=== PATIENT | female | born 1995 | race Caucasian/White ===

== ENCOUNTER 2018-03-17 20:21 | Outpatient (CLI) | payer BC ==
[2018-03-17 21:53] LABS: ADD MAN DIFF? NO
[2018-03-17 21:55] LABS: BASOPHILS % 0.1 % (0.0-2.0); EOSINOPHILS # 0.1 10^3/ul (0.0-0.5); EOSINOPHILS % 0.6 % (0.0-7.0); HEMOGLOBIN 10.7 g/dl (12.0-16.0); LYMPHOCYTES # 2.2 10^3/ul (0.8-2.9); LYMPHOCYTES % 27.7 % (15.0-51.0); MEAN CORPUSCULAR HEMOGLOBIN 25.9 pg (29.0-33.0); MEAN CORPUSCULAR HGB CONC 32.4 g/dl (32.0-37.0); MEAN CORPUSCULAR VOLUME 79.9 fl (82.0-101.0); MEAN PLATELET VOLUME 9.4 fl (7.4-10.4); MONOCYTE # 0.5 10^3/ul (0.3-0.9); MONOCYTES % 6.1 % (0.0-11.0); NEUTROPHIL # 5.2 10^3/ul (1.6-7.5); NEUTROPHILS % 65.2 % (39.0-77.0); PLATELET COUNT 298 10^3/UL (140-415); RED BLOOD COUNT 4.13 10^6/ul (4.20-5.40); RED CELL DISTRIBUTION WIDTH 14.7 % (11.5-14.5)
[2018-03-17 22:15] LABS: URIC ACID 3.9 mg/dl (3.1-7.9)
[2018-03-17 22:15] LABS: ALANINE AMINOTRANSFERASE 17 IU/L (13-69); ALBUMIN 3.6 g/dl (3.3-4.9); ALBUMIN/GLOBULIN RATIO 1.24; ALKALINE PHOSPHATASE 137 IU/L (42-121); ANION GAP 11 (5-13); ASPARTATE AMINO TRANSFERASE 20 IU/L (15-46); BILIRUBIN,INDIRECT 0.3 mg/dl (0-1.1); BILIRUBIN,TOTAL 0.3 mg/dl (0.2-1.3); BLOOD UREA NITROGEN 8 mg/dl (7-20); CALCIUM 9.1 mg/dl (8.4-10.2); CARBON DIOXIDE 20 mmol/L (21-31); CHLORIDE 106 mmol/L (97-110); CREATININE 0.31 mg/dl (0.44-1.00); Estimated GFR > 60 mL/min (>60); GLUCOSE 131 mg/dl (70-220); POTASSIUM 3.9 mmol/L (3.5-5.1); SODIUM 137 mmol/L (135-144); TOTAL PROTEIN 6.5 g/dl (6.1-8.1)
[2018-03-17 22:31] LABS: ADD UMIC YES; UR ASCORBIC ACID NEGATIVE (NEGATIVE); UR BACTERIA FEW /HPF (NONE SEEN); UR BILIRUBIN (Dip) NEGATIVE (NEGATIVE); UR BLOOD (Dip) NEGATIVE (NEGATIVE); UR CLARITY CLOUDY (CLEAR); UR COLOR YELLOW (YELLOW); UR GLUCOSE (Dip) 3+ mg/dL (NEGATIVE); UR KETONES (Dip) TRACE mg/dL (NEGATIVE); UR LEUKOCYTE ESTERASE (Dip) 3+ Leu/ul (NEGATIVE); UR MUCUS FEW /HPF (NONE SEEN); UR NITRITE (Dip) NEGATIVE (NEGATIVE); UR RBC 39 /HPF (0-5); UR SPECIFIC GRAVITY (Dip) 1.021 (1.003-1.030); UR SQUAMOUS EPITHELIAL CELL MANY /HPF (FEW); UR TOTAL PROTEIN (Dip) 1+ mg/dl (NEGATIVE); UR UROBILINOGEN (Dip) 1+ mg/dL (NEGATIVE); UR WBC 128 /HPF (0-5)
[2018-03-18] MEDS: CEFTRIAXONE 1 GM INJ IM
== END 2018-03-18 00:09 | disposition home or self-care (01) ==
LOC: OBT 03-18 00:09 → L-D 20:21
DX: O24.419 Gestational diabetes mellitus in pregnancy, unspecified control (principal); O23.43 Unspecified infection of urinary tract in pregnancy, third trimester; Z91.19 Patient's noncompliance with other medical treatment and regimen; Z3A.37 37 weeks gestation of pregnancy
CPT/HCPCS: 36415; 76815; 76818; 80053; 81001; 84560; 85025; 96372

== ENCOUNTER 2018-03-20 15:33 | Outpatient (CLI) | payer BC | END 2018-03-20 17:00 | disposition home or self-care (01) | LOC: OBT 15:33 → L-D 15:34 → OBT 17:00 | DX: O24.414 Gestational diabetes mellitus in pregnancy, insulin controlled (principal); Z3A.37 37 weeks gestation of pregnancy | CPT/HCPCS: 76818 ==

== ENCOUNTER 2018-03-24 13:37 | Inpatient (IN) | payer BC ==
[2018-03-24] MEDS ORDERED: MISOPROSTOL 200 MCG TAB PR (15:30)
[2018-03-24] MEDS ORDERED: METHYLERGONOVINE 0.2 MG INJ IM (15:30)
[2018-03-24] MEDS ORDERED: LIDOCAINE 1% (MPF) 30 ML INJ INJ (15:30)
[2018-03-24] MEDS ORDERED: OXYTOCIN 30 UNITS/LR 500 ML IV (15:30)
[2018-03-24] MEDS ORDERED: IBUPROFEN 600 MG TAB PO (15:30)
[2018-03-24] MEDS ORDERED: CARBOPROST 250 MCG INJ IM (15:30)
[2018-03-24] MEDS ORDERED: BUTORPHANOL 1 MG INJ IV (15:30)
[2018-03-24] MEDS: AMPICILLIN 2 GM/NS (PMX) 100 ML IV (17:08)
[2018-03-24] MEDS: LACTATED RINGER'S 1,000 ML IV (17:08)
[2018-03-24] MEDS: MISOPROSTOL 50 MCG CAPSULE PO (17:08)
[2018-03-24 17:54] LABS: ADD MAN DIFF? NO
[2018-03-24 17:58] LABS: BASOPHILS % 0.1 % (0.0-2.0); EOSINOPHILS % 0.6 % (0.0-7.0); HEMATOCRIT 32.6 % (37.0-47.0); HEMOGLOBIN 10.5 g/dl (12.0-16.0); LYMPHOCYTES # 1.9 10^3/ul (0.8-2.9); LYMPHOCYTES % 27.1 % (15.0-51.0); MEAN CORPUSCULAR HEMOGLOBIN 26.1 pg (29.0-33.0); MEAN CORPUSCULAR HGB CONC 32.2 g/dl (32.0-37.0); MEAN CORPUSCULAR VOLUME 80.9 fl (82.0-101.0); MEAN PLATELET VOLUME 9.9 fl (7.4-10.4); MONOCYTE # 0.4 10^3/ul (0.3-0.9); MONOCYTES % 5.7 % (0.0-11.0); NEUTROPHIL # 4.6 10^3/ul (1.6-7.5); NEUTROPHILS % 66.1 % (39.0-77.0); PLATELET COUNT 305 10^3/UL (140-415); RED BLOOD COUNT 4.03 10^6/ul (4.20-5.40); RED CELL DISTRIBUTION WIDTH 15.2 % (11.5-14.5)
[2018-03-24 18:12] LABS: HEMOGLOBIN A1C 6.7 % (0-5.9)
[2018-03-24 18:18] LABS: INR 0.92; PROTIME 12.4 Sec (11.9-14.9)
[2018-03-24 18:19] LABS: PARTIAL THROMBOPLASTIN TIME 28.5 Sec (23.0-35.0)
[2018-03-24] MEDS ORDERED: GLUCOSE GEL 15 GRAM TUBE PO ×2 (19:00)
[2018-03-24] MEDS ORDERED: GLUCAGON 1 MG INJ IM (19:00)
[2018-03-24] MEDS ORDERED: DEXTROSE 50% 50 ML SYRINGE IV ×2 (19:00)
[2018-03-24] MEDS ORDERED: GLUCOSE GEL 15 GRAM TUBE BUCCAL (19:00)
[2018-03-24 19:02] LABS: HEPATITIS B SURFACE ANTIGEN NEGATIVE (NEGATIVE)
[2018-03-24] MEDS ORDERED: AMPICILLIN 1 GM/NS (PMX) 50 ML IV (19:30)
[2018-03-24 19:36] LABS: ADD UMIC YES; UR ASCORBIC ACID NEGATIVE (NEGATIVE); UR BACTERIA FEW /HPF (NONE SEEN); UR BILIRUBIN (Dip) NEGATIVE (NEGATIVE); UR BLOOD (Dip) NEGATIVE (NEGATIVE); UR CLARITY SLIGHTLY CLOUDY (CLEAR); UR COLOR YELLOW (YELLOW); UR GLUCOSE (Dip) 1+ mg/dL (NEGATIVE); UR KETONES (Dip) 1+ mg/dL (NEGATIVE); UR LEUKOCYTE ESTERASE (Dip) 3+ Leu/ul (NEGATIVE); UR MUCUS FEW /HPF (NONE SEEN); UR NITRITE (Dip) NEGATIVE (NEGATIVE); UR RBC 5 /HPF (0-5); UR SPECIFIC GRAVITY (Dip) 1.019 (1.003-1.030); UR SQUAMOUS EPITHELIAL CELL FEW /HPF (FEW); UR TOTAL PROTEIN (Dip) NEGATIVE (NEGATIVE); UR UROBILINOGEN (Dip) NEGATIVE (NEGATIVE); UR WBC 6 /HPF (0-5)
[2018-03-24] MEDS: DEXTROSE 5%-LR 1,000 ML IV ×2 (19:50→20:43)
[2018-03-24] MEDS: AMPICILLIN 1 GM/NS (PMX) 50 ML IV (20:44)
[2018-03-24] MEDS: INSULIN ASPART [NOVOLOG] 3 ML PEN SC (21:00)
[2018-03-24] MEDS: ACETAMINOPHEN 500 MG TAB PO (23:17)
[2018-03-25] MEDS: INSULIN ASPART [NOVOLOG] 3 ML PEN SC ×6 (00:38→21:00)
[2018-03-25] MEDS: AMPICILLIN 1 GM/NS (PMX) 50 ML IV ×6 (00:43→21:23)
[2018-03-25] MEDS: LACTATED RINGER'S 1,000 ML IV ×3 (04:54→19:24)
[2018-03-25] MEDS: MISOPROSTOL 50 MCG CAPSULE PO ×4 (06:39→18:32)
[2018-03-25] MEDS: DEXTROSE 5%-LR 1,000 ML IV ×2 (07:00→19:24)
[2018-03-25 15:20] LABS: RAPID PLASMA REAGIN NONREACTIVE (NR)
[2018-03-26] MEDS: AMPICILLIN 1 GM/NS (PMX) 50 ML IV ×6 (00:48→21:06)
[2018-03-26] MEDS: INSULIN ASPART [NOVOLOG] 3 ML PEN SC ×6 (00:48→21:00)
[2018-03-26] MEDS: DEXTROSE 5%-LR 1,000 ML IV ×3 (03:27→21:05)
[2018-03-26] MEDS: LACTATED RINGER'S 1,000 ML IV ×3 (05:09→21:05)
[2018-03-26] MEDS: MISOPROSTOL 50 MCG CAPSULE PO ×5 (06:46→06:48)
[2018-03-26] MEDS: OXYTOCIN 30 UNITS/LR 500 ML IV (14:56)
[2018-03-26] MEDS: BUTORPHANOL 2 MG INJ IV (23:33)
[2018-03-27] MEDS: INSULIN ASPART [NOVOLOG] 3 ML PEN SC ×3 (01:00→12:20)
[2018-03-27] MEDS: AMPICILLIN 1 GM/NS (PMX) 50 ML IV ×2 (01:02→05:44)
[2018-03-27] MEDS: LACTATED RINGER'S 1,000 ML IV ×5 (01:04→15:24)
[2018-03-27] MEDS: DEXTROSE 5%-LR 1,000 ML IV (01:10)
[2018-03-27] MEDS ORDERED: FENTAnyl 2MCG/ML-ROPIV 0.2% 100 ML (02:25)
[2018-03-27] MEDS ORDERED: NALOXONE (0.4 MG/ML) INJ IV (03:00)
[2018-03-27] MEDS: FENTAnyl 2MCG/ML-ROPIV 0.2% 100 ML BAG EPI (08:10)
[2018-03-27] MEDS: OXYTOCIN 30 UNITS/LR 500 ML IV ×4 (10:12→17:20)
[2018-03-27] MEDS ORDERED: ACETAMINOPHEN 325 MG TAB PO (12:30)
[2018-03-27] MEDS ORDERED: HYDROCODONE/APAP (5/325) TAB PO ×2 (12:30)
[2018-03-27] MEDS ORDERED: OXYCODONE/ASPIRIN (4.88/325) TAB PO ×2 (12:30)
[2018-03-27] MEDS: IBUPROFEN 600 MG TAB PO ×2 (12:30→17:17)
[2018-03-27] MEDS ORDERED: ONDANSETRON 4 MG INJ IV (12:30)
[2018-03-27] MEDS: WITCH HAZEL/GLYCERIN PAD PR (17:18)
[2018-03-27] MEDS: BENZOCAINE 20% 56 ML SPRAY TOP (17:18)
[2018-03-28] MEDS: IBUPROFEN 600 MG TAB PO ×4 (00:05→17:25)
[2018-03-28] MEDS: LANOLIN 7 GM TUBE TOP (05:54)
[2018-03-28] MEDS: LACTATED RINGER'S 1,000 ML IV ×2 (07:28→15:28)
[2018-03-28 08:05] LABS: ADD MAN DIFF? NO
[2018-03-28 08:13] LABS: WHITE BLOOD COUNT 5.9 10^3/ul (4.8-10.8)
[2018-03-28 08:13] LABS: BASOPHILS % 0.2 % (0.0-2.0); EOSINOPHILS % 0.7 % (0.0-7.0); HEMATOCRIT 30.2 % (37.0-47.0); HEMOGLOBIN 9.6 g/dl (12.0-16.0); LYMPHOCYTES # 1.3 10^3/ul (0.8-2.9); LYMPHOCYTES % 22.7 % (15.0-51.0); MEAN CORPUSCULAR HEMOGLOBIN 26.2 pg (29.0-33.0); MEAN CORPUSCULAR HGB CONC 31.8 g/dl (32.0-37.0); MEAN CORPUSCULAR VOLUME 82.3 fl (82.0-101.0); MEAN PLATELET VOLUME 10.2 fl (7.4-10.4); MONOCYTE # 0.5 10^3/ul (0.3-0.9); MONOCYTES % 8.2 % (0.0-11.0); NEUTROPHILS % 67.9 % (39.0-77.0); PLATELET COUNT 270 10^3/UL (140-415); RED BLOOD COUNT 3.67 10^6/ul (4.20-5.40); RED CELL DISTRIBUTION WIDTH 15.5 % (11.5-14.5)
[2018-03-28] MEDS: SENNA/DOCUSATE NA (8.6MG/50MG) TAB PO ×2 (10:07→21:44)
[2018-03-29] MEDS: IBUPROFEN 600 MG TAB PO ×3 (00:01→12:00)
[2018-03-29] MEDS: MEASLES,MUMPS,RUBELLA VACCINE INJ SC* (09:00)
[2018-03-29] MEDS: SENNA/DOCUSATE NA (8.6MG/50MG) TAB PO (09:07)
[2018-04-03] MEDS ORDERED: NEOSTIGMINE 3 MG/3 ML SYRINGE (19:41)
[2018-04-03] MEDS ORDERED: METOCLOPRAMIDE 10 MG INJ (19:41)
[2018-04-03] MEDS ORDERED: ONDANSETRON 4 MG INJ (19:41)
[2018-04-03] MEDS ORDERED: FENTAnyl 50 MCG/ML VIAL (19:46)
[2018-04-03] MEDS ORDERED: GLYCOPYRROLATE 0.4 MG INJ (20:28)
== END 2018-03-29 15:35 | disposition home or self-care (01) | DRG 805 ==
LOC: L-D 13:37 → PP1 03-27 11:55 → L-D 13:52
PROVIDERS: Obstetrics & Gynecology
PROC: 10E0XZZ Delivery of Products of Conception, External Approach (ICD-10-PCS; principal; 2018-03-27)
PROC: 0HQ9XZZ Repair Perineum Skin, External Approach (ICD-10-PCS; 2018-03-27)
DX: O70.0 First degree perineal laceration during delivery (principal); O24.12 Pre-existing type 2 diabetes mellitus, in childbirth; Z37.0 Single live birth; E11.9 Type 2 diabetes mellitus without complications; Z3A.38 38 weeks gestation of pregnancy; Z79.4 Long term (current) use of insulin
CPT/HCPCS: 76815; 76816; 76818; 81001; 82962; 83036; 85025; 85610; 85730; 86592; 86850; 86900; 86901; 87340